=== PATIENT | female | born 1930 | race Caucasian/White ===

== ENCOUNTER 2019-03-04 09:03 | Inpatient (IN) | payer MEDICARE, OTHER ==
[~2019-03-04 09:03] MED LIST: AMLO10TA5 PO; AMLO10TAB OR; ASPI81TA26 PO; ASPI81TA45; BABY81CH; BABY81CH OR; COLA100C2; COUM1TAB; COUM1TAB18; COUMADIN; DIOV160T3 PO; DIOV320T; DIOV80TA OR; GLUC500T; HYDR-3911 PO; HYDR25TA6; HYDR25TA7 OR; KEFL500C17 PO; LIPI20TA; LIPI20TA OR; LIPI20TA PO; LISI40TA; LISI40TA OR; LOPR50TA; METF500T4; METF500T4 OR; METO-1; METO1TAB7 PO; METO50TA4; METO50TA4 OR; NEXI1CAP3 OR; NORV5TAB; OMEP-172 PO; POTA10CA2; PROT1TAB2; SENN8.6T14; SULF800T PO; TRAM50TA2; TRIC145T19; TRIC145T19 OR; TRIC145T22 PO; TRIC1TAB; VITA100066 PO; [UNRECOGNIZED DRUG - OTHER] PO; tylenol arthritis
[2019-03-04] MEDS ORDERED: POTA10CA32 PO (09:30)
[2019-03-04] MEDS ORDERED: LOSA100T8 PO (09:30)
[2019-03-04 09:55] LABS: BASO % 0.3 % (0.0-1.0); EOS % 0.4 % (0.0-3.0); HEMOGLOBIN 12.2 g/dl (12.0-15.5); LYMPH # 2.5 10^3/uL (1.5-5.0); LYMPH % 33.5 % (24.0-44.0); MEAN CORPUSCULAR VOLUME 103.1 fl (80.0-96.0); MONO # 0.7 10^3/uL (0.0-0.8); MONO % 9.9 % (0.0-5.0); NEUTROPHILS # 4.1 10^3/uL (1.5-8.5); NEUTROPHILS % 55.2 % (36.0-66.0); PLATELET COUNT, AUTOMATED 224 10^3/uL (150-450); RED BLOOD COUNT 3.59 10^6/uL (4.00-5.40); WHITE BLOOD COUNT 7.5 10^3/uL (4.0-10.0)
[2019-03-04] MEDS ORDERED: NS 1,000 ML IV ONE ×2 (10:00)
[2019-03-04 10:57] LABS: ALBUMIN 3.4 GM/DL (3.2-5.2); ALT/SGPT 23 U/L (12-78); BILIRUBIN,DIRECT 0.6 MG/DL (0.0-0.2); BILIRUBIN,TOTAL 1.1 MG/DL (0.2-1.0); BLOOD UREA NITROGEN 105 MG/DL (7-18); CALCIUM LEVEL 8.2 MG/DL (8.8-10.2); CARBON DIOXIDE LEVEL 14 MEQ/L (21-32); CHLORIDE LEVEL 108 MEQ/L (98-107); CPK CREATINE PHOSPHOKINASE 87 U/L (26-192); CREATININE FOR GFR 4.56 MG/DL (0.55-1.30); GLOMERULAR FILTRATION RATE 9.7 (>32); GLUCOSE, FASTING 153 MG/DL (70-100); MB/CK RELATIVE INDEX 3.45 (< OR =4); POTASSIUM SERUM 3.7 MEQ/L (3.5-5.1); SODIUM LEVEL 138 MEQ/L (136-145); TOTAL PROTEIN 6.5 GM/DL (6.4-8.2); TROPONIN I < 0.02 NG/ML (< 0.10)
[2019-03-04] MEDS ORDERED: ACETAMINOPHEN TAB 650MG DOSE (2X325MG) PO ONE (12:45)
[2019-03-04] MEDS ORDERED: D 1010002 PO (12:50)
--- NOTE | 2019-03-04 14:44 | REP ---
RENAL ULTRASOUND: Real-time sonographic evaluation of the kidneys performed. Right kidney measures 11.9 x 4.8 x 5.2 cm and left kidney 9.2 x 4.2 x 4.9 cm. There is no evidence of renal mass. There is moderate right hydronephrosis. There is no left hydronephrosis. Urinary bladder is not well distended and not well evaluated. IMPRESSION: Moderate right hydronephrosis appears similar to a prior CT of 12/17/2014. No left hydronephrosis. Electronically Signed by Russel Navarrete MD 03/04/2019 04:48 P
--- NOTE | 2019-03-04 15:33 | HPEPDOC ---
[facility] Medical History & Physical Date of Admission Mar 04, 2019 Date of Service: Mar 04, 2019 Attending Physician: BENNY MENG MD History and Physical CHIEF COMPLAINT: Diarrhea HISTORY OF PRESENT ILLNESS: 88 old female, past medical history of hypertension, diabetes and hyperlipidemia presents from home with diarrhea for the past 4 days. She reports feeling well up until 4 days ago, started having watery diarrhea, denies associated abdominal pain, nausea, vomiting or fevers. She also reports feeling dizzy over the past 24-48 hours. She reports poor oral intake during this time as well, continued taking all 5 of her antihypertensive medications as well. Patient denies any sick contacts, nobody else with similar symptoms at home. She also denies any myalgia or arthralgia. She was given 2 L of normal saline in the ED, reports improvement in dizziness, last episode of diarrhea was earlier today. She denies any short of breath, chest pain, nausea, vomiting or abdominal pain at this time. 10 point review of system is negative except for above PAST MEDICAL HISTORY: 1. Hypertension. 2. Diabetes mellitus. 3. Hyperlipidemia. PAST SURGICAL HISTORY: 1. Hysterectomy. SOCIAL HISTORY: Never smoker. Social alcohol use. Denies drug use FAMILY HISTORY: Positive for heart disease ALLERGIES: Please see below. HOME MEDICATIONS: Please see below. PHYSICAL EXAMINATION: VITAL SIGNS: Please see below. GENERAL: No distress HEENT: Normocephalic, atraumatic, moist mucous membranes NECK: Supple CARDIOVASCULAR EXAMINATION: S1, S2, no murmurs RESPIRATORY EXAMINATION: Clear to auscultation, no wheezing ABDOMINAL EXAMINATION: Soft, nontender, nondistended, positive bowel sounds EXTREMITIES: Range of motion intact SKIN: No rash NEUROLOGICAL EXAMINATION: Alert and oriented 3, no focal deficits PSYCHIATRIC EXAMINATION: Calm and cooperative LABORATORY DATA: See below. IMAGING: Renal ultrasound with moderate right-sided hydronephrosis MICROBIOLOGY: Please see below. ASSESSMENT: 88-year-old female with past medical history of hypertension, diabetes mellitus and hyperlipidemia presents with diarrhea, acute kidney injury and moderate right hydronephrosis. PLAN: 1. Diarrhea. Unknown etiology, possibly related to medication versus acute kidney injury versus hydronephrosis, GI panel ordered. Diarrhea seems to have resolved, will monitor, continue IV hydration. 2. Acute kidney injury. Likely prerenal and medication induced, patient on JESSIE inhibitor and hydrochlorothiazide (will hold), also has moderate right-sided hydronephrosis on imaging, CT of the abdomen and pelvis ordered, continue IV hydration. 3. Possible UTI. UA concerning for UTI, ordered ceftriaxone. 4. Hyperlipidemia. Continue atorvastatin 5. Hypertension. Continue home Norvasc and metoprolol for now, hold hydralazine, JESSIE inhibitor and hydro-chlorothiazide. DVT prophylaxis: Heparin subcutaneous GI prophylaxis: Not needed Vital Signs Vital Signs Date Time Temp Pulse Resp B/P (MAP) Pulse Ox O2 Delivery O2 Flow Rate FiO2 03/04/19 13:45 77 103/51 (68) 96 03/04/19 09:08 96.7 18 Room Air Laboratory Data Labs 24H Laboratory Tests 2 03/04/19 09:21: Bedside Glucose (Misc Panel) 138H 03/04/19 09:36: Immature Granulocyte % (Auto) 0.7, Neutrophils (%) (Auto) 55.2, Lymphocytes (%) (Auto) 33.5, Monocytes (%) (Auto) 9.9H, Eosinophils (%) (Auto) 0.4, Basophils (% ) (Auto) 0.3, Neutrophils # (Auto) 4.1, Lymphocytes # (Auto) 2.5, Monocytes # (Auto) 0.7, Eosinophils # (Auto) 0.0, Basophils # (Auto) 0.0, Nucleated Red Blood Cells % (auto) 0.0, Anion Gap 16, Glomerular Filtration Rate 9.7L, Lactic Acid Level 1.0, Calcium Level 8.2L, Total Bilirubin 1.1H, Direct Bilirubin 0.6H, Aspartate Amino Transf (AST/SGOT) 24, Alanine Aminotransferase (ALT/SGPT) 23, Alkaline Phosphatase 75, Total Creatine Kinase 87, Creatine Kinase MB 3.0, Creatine Kinase MB Relative Index 3.45, Troponin I < 0.02, Total Protein 6.5, Albumin 3.4, Albumin/Globulin Ratio 1.10, Thyroid Stimulating Hormone (TSH) 2.520 03/04/19 12:34: Urine Color ISABELA, Urine Appearance CLOUDYH, Urine pH 5.0, Urine Specific Artesian 1.014, Urine Protein 1+H, Urine Glucose (UA) NEGATIVE, Urine Ketones NEGATIVE, Urine Blood NEGATIVE, Urine Nitrite NEGATIVE, Urine Bilirubin 1+H, Urine Urobilinogen 0.2, Urine Leukocyte Esterase 1+H, Urine WBC (Auto) 15H, Urine RBC (Auto) 3, Urine Hyaline Casts (Auto) 42, Urine Bacteria (Auto) 3+H, Urine Squamous Epithelial Cells 1, Urine Transitional Epithelial Cells <1, Urine Amorphous Sediment SMALLH, Urine Mucus (Auto) SMALL, Urine Sperm (Auto) CBC/BMP Laboratory Tests 03/04/19 09:36 Microbiology Microbiology 03/04/19 Urine Culture, Received Pending 03/04/19 Blood Culture, Received Pending Home Medications Scheduled Amlodipine Besylate (Amlodipine Besylate) 10 Mg Tab, 10 MG PO DAILY Aspirin (Aspirin EC) 81 Mg Tab, 81 MG PO QHS Atorvastatin Calcium (Lipitor) 20 Mg Tab, 20 MG PO DAILY Cholecalciferol (Vitamin D3) (Vitamin D3) 1,000 Unit Capsule, 1,000 UNIT PO DAILY Fenofibrate Nanocrystallized (Tricor) 145 Mg Tab, 145 MG PO DAILY Hydralazine HCl (Hydralazine HCl) 50 Mg Tab, 50 MG PO TID Losartan/Hydrochlorothiazide (Losartan-Hctz 100-12.5 mg Tab) 1 Each Tablet, 1 TAB PO DAILY Metoprolol Succinate (Metoprolol Succinate) 50 Mg Tab, 50 MG PO DAILY Omeprazole (Omeprazole) 20 Mg Cap, 20 MG PO DAILY Potassium Chloride (Potassium Chloride) 10 Meq Capsule.er, 10 MEQ PO DAILY Allergies Coded Allergies: Sulfa (Sulfonamide Antibiotics) (Verified Adverse Reaction, Severe, Renal failure, 03/04/19) A-FIB/CHADSVASC A-FIB History Current/History of A-Fib/PAF?: No BENNY MENG MD Mar 04, 2019 15:33
--- NOTE | 2019-03-04 15:45 | REP ---
Clinical: Diarrhea. Right-sided hydronephrosis Technique: Axial noncontrast images from the lung bases to the pubic symphysis with coronal and sagittal re-formations. Comparison: 12/17/2014. Findings: Lung bases demonstrate chronic fibroatelectatic changes. Liver, spleen, pancreas, and bilateral adrenal glands are essentially normal noncontrast evaluation. 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 The enteric system is without obvious acute obstruction or definite inflammatory process. Normal terminal ileum and appendix identified in the right lower quadrant. Sigmoid diverticula noted without definite acute diverticulitis. 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 Osseous structures demonstrate degenerative changes without focal abnormality. Impression: 1. Chronic stable changes. 2. No obvious acute abdominopelvic pathology appreciated. 3. 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 4. No ascites. No free air. No obvious focal inflammatory stranding or adenopathy. 5. Diverticulosis without acute diverticulitis. Electronically Signed by Gerry Camacho MD 03/04/2019 03:37 P
[2019-03-04] MEDS: **hydrALAZINE** 50 MG TAB PO SCH ×2 (16:00→20:20)
[2019-03-04 16:33] LABS: CALCIUM LEVEL 7.3 MG/DL (8.8-10.2); CREATININE FOR GFR 3.34 MG/DL (0.55-1.30); GLOMERULAR FILTRATION RATE 13.9 (>32); POTASSIUM SERUM 3.6 MEQ/L (3.5-5.1)
[2019-03-04 16:55] VITALS: BP 111/47
[2019-03-04] MEDS: NS 1,000 ML IV SCH (17:11)
[2019-03-04] MEDS: cefTRIAXone SOD 1 GM in D5W MINI-BAG PLUS 50 ML IV SCH (17:11)
--- NOTE | 2019-03-04 18:05 | ECGEPIP ---
[facility] - ED Test Date: 2019-03-04 Pat Name: JOHANNE RASHEED Department: Room: - Gender: Female Neuroscience Specialist: ARTEMIO : [id number] Requested By: MARCY Gusman Order Number: [id number] Reading MD: Chip Jones Measurements Intervals [place] Rate: 83 P: 27 CT: 197 QRS: 13 QRSD: 89 T: -17 QT: 371 QTc: 436 Interpretive Statements SINUS RHYTHM WITH OCCASIONAL SUPRAVENTRICULAR PREMATURE COMPLEXES NSTTW ABNORMALITIES, MORE PRONOUNCED COMPARED TO 12/17/14 Electronically Signed on 03-04-2019 18:05:42 EST by Chip Jones
[2019-03-04] MEDS: ASPIRIN 81 MG ENTERIC TAB PO SCH (20:07)
[2019-03-04] MEDS: HEPARIN SOD (PORCINE) 5000 UNITS/ML VIAL SC SCH (20:08)
[2019-03-04 22:00] VITALS: BP 106/50
[2019-03-05] MEDS ORDERED: AZITHROMYCIN 250 MG TAB PO ONE (03:15)
[2019-03-05] MEDS: NS 1,000 ML IV SCH (03:29)
[2019-03-05 06:00] VITALS: BP 113/58
[2019-03-05 06:32] LABS: HEMATOCRIT 30.9 % (36.0-47.0); MEAN CORPUSCULAR HEMOGLOBIN 33.3 pg (27.0-33.0); MEAN CORPUSCULAR HGB CONC 32.4 g/dl (32.0-36.5); PLATELET COUNT, AUTOMATED 165 10^3/uL (150-450); WHITE BLOOD COUNT 6.4 10^3/uL (4.0-10.0)
[2019-03-05 06:55] LABS: ALBUMIN 2.7 GM/DL (3.2-5.2); BILIRUBIN,TOTAL 0.5 MG/DL (0.2-1.0); CALCIUM LEVEL 7.3 MG/DL (8.8-10.2); CREATININE FOR GFR 2.19 MG/DL (0.55-1.30); GLOMERULAR FILTRATION RATE 22.6 (>32); MAGNESIUM LEVEL 0.6 MG/DL (1.8-2.4); PHOSPHORUS LEVEL 3.3 MG/DL (2.5-4.9); POTASSIUM SERUM 3.3 MEQ/L (3.5-5.1); TOTAL PROTEIN 5.6 GM/DL (6.4-8.2)
[2019-03-05] MEDS: MAG SULF 1GM/100ML (MAG RUN) 1 GM in IV 1 EA IV SCH ×8 (07:31→22:29)
[2019-03-05] MEDS: FENOFIBRATE 145 MG TAB (TRICOR) PO SCH (08:16)
[2019-03-05] MEDS: HEPARIN SOD (PORCINE) 5000 UNITS/ML VIAL SC SCH ×2 (08:16→20:47)
[2019-03-05] MEDS: METOPROLOL SUCC (TopROL XL) 50MG **XL** TAB PO SCH (08:17)
[2019-03-05] MEDS: amLODIPine 10 MG TAB PO SCH (08:17)
[2019-03-05] MEDS: **hydrALAZINE** 50 MG TAB PO SCH ×3 (08:17→20:49)
[2019-03-05] MEDS: OMEPRAZOLE 20 MG CAP PO SCH (08:17)
[2019-03-05] MEDS: ATORVASTATIN 20 MG TAB PO SCH (08:17)
[2019-03-05] MEDS ORDERED: SODIUM BICARBONATE 150 MEQ in STERILE WATER LITER BAG 1,000 ML IV SCH (10:00)
[2019-03-05] MEDS: POTASSIUM CHLORIDE 10 MEQ SR TABLET PO SCH ×2 (10:04→12:15)
[2019-03-05 14:00] VITALS: BP 108/55
[2019-03-05] MEDS: cefTRIAXone SOD 1 GM in D5W MINI-BAG PLUS 50 ML IV SCH (16:02)
--- NOTE | 2019-03-05 18:30 | IPNPDOC ---
Date Seen The patient was seen on 03/05/19. Progress Note HISTORY OF PRESENT ILLNESS: 88 old female, past medical history of hypertension, diabetes and hyperlipidemia presents from home with diarrhea for the past 4 days. She reports feeling well up until 4 days ago, started having watery diarrhea, denies associated abdominal pain, nausea, vomiting or fevers. She also reports feeling dizzy over the past 24-48 hours. She reports poor oral intake during this time as well, continued taking all 5 of her antihypertensive medications as well. Patient denies any sick contacts, nobody else with similar symptoms at home. She also denies any myalgia or arthralgia. She was given 2 L of normal saline in the ED, reports improvement in dizziness, last episode of diarrhea was earlier today. She denies any short of breath, chest pain, nausea, vomiting or abdominal pain at this time. 03/05/2019 Stool panel positive for Campylobacter, patient is to have diarrhea, no other complaints. 10 point review of system is negative except for above PHYSICAL EXAMINATION: VITAL SIGNS: Please see below. GENERAL: No distress HEENT: Normocephalic, atraumatic, moist mucous membranes NECK: Supple CARDIOVASCULAR EXAMINATION: S1, S2, no murmurs RESPIRATORY EXAMINATION: Clear to auscultation, no wheezing ABDOMINAL EXAMINATION: Soft, nontender, nondistended, positive bowel sounds EXTREMITIES: Range of motion intact SKIN: No rash NEUROLOGICAL EXAMINATION: Alert and oriented 3, no focal deficits PSYCHIATRIC EXAMINATION: Calm and cooperative LABORATORY DATA: See below. IMAGING: Renal ultrasound with moderate right-sided hydronephrosis MICROBIOLOGY: Please see below. ASSESSMENT: 88-year-old female with past medical history of hypertension, diabetes mellitus and hyperlipidemia presents with diarrhea, acute kidney injury and moderate right hydronephrosis. PLAN: 1. Watery Diarrhea. Likely due to Campylobacter, treated with azithromycin 1 g 1. Continue IV hydration for acute kidney injury. 2. Acute kidney injury. Likely prerenal and medication induced, patient on JESSIE inhibitor and hydrochlorothiazide (will hold), also has moderate right-sided hydronephrosis on imaging, CT of the abdomen and pelvis confirming chronic stable right sided hydronephrosis, continue IV hydration. 3. Possible UTI. UA concerning for UTI, ordered ceftriaxone. 4. Hyperlipidemia. Continue atorvastatin 5. Hypertension. Continue home Norvasc and metoprolol for now, hold hydralazine, JESSIE inhibitor and hydro-chlorothiazide. 6. Hypomagnesemia. Severe, treated with 6 g of IV mag sulfate so far, will administer another 2 g overnight, will monitor and provide further repletion as needed. DVT prophylaxis: Heparin subcutaneous GI prophylaxis: Not needed VS, I&O, 24H, Fishbone Vital Signs/I&O Vital Signs Date Time Temp Pulse Resp B/P (MAP) Pulse Ox O2 Delivery O2 Flow Rate FiO2 03/05/19 14:00 97.9 69 18 108/55 (72) 95 Room Air I&O- Last 24 Hours up to 6 AM 03/05/19 06:00 Intake Total 3590 ml Output Total 400 ml Balance 3190 ml Laboratory Data 24H LABS Laboratory Tests 2 03/05/19 05:18: Nucleated Red Blood Cells % (auto) 0.0, Anion Gap 9, Glomerular Filtration Rate 22.6L, Calcium Level 7.3L, Phosphorus Level 3.3, Magnesium Level 0.6*L, Total Bilirubin 0.5#, Aspartate Amino Transf (AST/SGOT) 17, Alanine Aminotransferase (ALT/SGPT) 19, Alkaline Phosphatase 60, Total Protein 5.6L, Albumin 2.7#L, Albumin/Globulin Ratio 0.93L CBC/BMP Laboratory Tests 03/05/19 05:18 Microbiology Microbiology 03/05/19 Gastrointestinal Tract Panel (PCR) - Final, Complete Campylobacter 03/04/19 Urine Culture - Final, Complete 03/04/19 Blood Culture - Preliminary, Resulted No growth after 24 hours . All specim... BENNY MENG MD Mar 05, 2019 18:30
--- NOTE | 2019-03-05 19:58 | ECHO ---
DATE OF PROCEDURE: 03/05/2019 Date of : 1930 Age: 88 REFERRING PHYSICIAN: Dr. De Leon PATIENT LOCATION: Room 4202 REASON FOR ECHOCARDIOGRAM: Shortness of breath. 2D MEASUREMENTS: IVS: 0.9 cm LV: 3.3 cm LVPW: 0.9 cm LA: 2.5 cm Aorta: 2.8 cm IVC: 1.9 cm DOPPLER MEASUREMENTS: Peak velocity across the aortic valve: 1.5 m/s Peak velocity across the LVOT: 0.95 m/s Mitral E: 0.72, Mitral A: 0.78 with a ratio of 0.9 Maximum tricuspid valve velocity: 2.7 m/s 2D COMMENTS: 1. Normal left ventricular size, wall thickness, and normal global left ventricular systolic function. The estimated left ventricular systolic ejection fraction is 60-65%. 2. Normal left atrium. Normal right atrium and right ventricle. 3. The atrial septum appeared to be normal without evidence of defect or shunt. 4. Normal aortic root. 5. Trace to small pericardial effusion noted, no evidence of cardiac tamponade. 6. Right pleural effusion also noted. 7. Minimally calcified aortic valve with normal leaflet excursion. No mitral valve, tricuspid valve. The pulmonic valve and proximal pulmonary artery branches were not well visualized. 8. The inferior vena cava was normal in size, central venous pressure is most likely normal. DOPPLER: It detects mild mitral regurgitation, mild to moderate tricuspid regurgitation. The calculated pulmonary artery systolic pressure varies between 30-40 mmHg. Abnormal relaxation pattern was noted across the mitral valve leaflets as well as the mitral valve annulus consistent with features of grade 1 left ventricular diastolic dysfunction. IMPRESSION 1. Normal global left ventricular systolic function. There is some features of grade 1 left ventricular diastolic dysfunction manifested by abnormal relaxation. 2. Aortic valve sclerosis with trivial aortic stenosis but no aortic regurgitation. 3. Mild mitral regurgitation. 4. Mild to moderate tricuspid regurgitation with mild pulmonary hypertension. 5. Trace to small pericardial effusion noted, no evidence of cardiac tamponade. A right pleural effusion also was noted.
[2019-03-05] MEDS: ASPIRIN 81 MG ENTERIC TAB PO SCH (20:47)
[2019-03-05 22:00] VITALS: BP 115/57
[2019-03-06 05:50] LABS: HEMATOCRIT 30.8 % (36.0-47.0); HEMOGLOBIN 10.2 g/dl (12.0-15.5); MEAN CORPUSCULAR HEMOGLOBIN 33.2 pg (27.0-33.0); MEAN CORPUSCULAR HGB CONC 33.1 g/dl (32.0-36.5); MEAN CORPUSCULAR VOLUME 100.3 fl (80.0-96.0); PLATELET COUNT, AUTOMATED 175 10^3/uL (150-450); RED BLOOD COUNT 3.07 10^6/uL (4.00-5.40); WHITE BLOOD COUNT 6.9 10^3/uL (4.0-10.0)
[2019-03-06 06:00] VITALS: BP 119/55
[2019-03-06 06:16] LABS: CREATININE FOR GFR 1.27 MG/DL (0.55-1.30); GLOMERULAR FILTRATION RATE 42.5 (>32); MAGNESIUM LEVEL 2.8 MG/DL (1.8-2.4); PHOSPHORUS LEVEL 1.4 MG/DL (2.5-4.9); POTASSIUM SERUM 4.2 MEQ/L (3.5-5.1)
[2019-03-06] MEDS: FENOFIBRATE 145 MG TAB (TRICOR) PO SCH (08:53)
[2019-03-06] MEDS: OMEPRAZOLE 20 MG CAP PO SCH (08:53)
[2019-03-06] MEDS: ATORVASTATIN 20 MG TAB PO SCH (08:55)
[2019-03-06] MEDS: METOPROLOL SUCC (TopROL XL) 50MG **XL** TAB PO SCH (08:55)
[2019-03-06] MEDS: **hydrALAZINE** 50 MG TAB PO SCH ×3 (08:55→22:08)
[2019-03-06] MEDS: amLODIPine 10 MG TAB PO SCH (08:55)
[2019-03-06] MEDS: HEPARIN SOD (PORCINE) 5000 UNITS/ML VIAL SC SCH ×2 (08:56→22:09)
[2019-03-06] MEDS ORDERED: FLUBLOK(EGG FREE)(QUAD)INFLUENZA VACC 0.5ML SYRINGE (90682)18YRS&OLDER IM ONE (09:00)
[2019-03-06] MEDS ORDERED: POTASSIUM PHOSPHATE INJ 30 MMOL in D5W 500 ML IV ONE (10:00)
[2019-03-06] MEDS ORDERED: FLUBLOK(EGG FREE)(QUAD)INFLUENZA VACC 0.5ML SYRINGE (90682)18YRS&OLDER IM PRN (10:45)
[2019-03-06] MEDS: cefTRIAXone SOD 1 GM in D5W MINI-BAG PLUS 50 ML IV SCH (16:44)
--- NOTE | 2019-03-06 17:22 | IPNPDOC ---
Date Seen The patient was seen on 03/06/19. Progress Note HISTORY OF PRESENT ILLNESS: 88 old female, past medical history of hypertension, diabetes and hyperlipidemia presents from home with diarrhea for the past 4 days. She reports feeling well up until 4 days ago, started having watery diarrhea, denies associated abdominal pain, nausea, vomiting or fevers. She also reports feeling dizzy over the past 24-48 hours. She reports poor oral intake during this time as well, continued taking all 5 of her antihypertensive medications as well. Patient denies any sick contacts, nobody else with similar symptoms at home. She also denies any myalgia or arthralgia. She was given 2 L of normal saline in the ED, reports improvement in dizziness, last episode of diarrhea was earlier today. She denies any short of breath, chest pain, nausea, vomiting or abdominal pain at this time. 03/05/2019 Stool panel positive for Campylobacter, patient is to have diarrhea, no other complaints. 03/06/2019 Patient comfortable in bed, without any complaint at this time, tolerating diet, has good urine output. 10 point review of system is negative except for above PHYSICAL EXAMINATION: VITAL SIGNS: Please see below. GENERAL: No distress HEENT: Normocephalic, atraumatic, moist mucous membranes NECK: Supple CARDIOVASCULAR EXAMINATION: S1, S2, no murmurs RESPIRATORY EXAMINATION: Clear to auscultation, no wheezing ABDOMINAL EXAMINATION: Soft, nontender, nondistended, positive bowel sounds EXTREMITIES: Range of motion intact SKIN: No rash NEUROLOGICAL EXAMINATION: Alert and oriented 3, no focal deficits PSYCHIATRIC EXAMINATION: Calm and cooperative LABORATORY DATA: See below. IMAGING: Renal ultrasound with moderate right-sided hydronephrosis MICROBIOLOGY: Please see below. ASSESSMENT: 88-year-old female with past medical history of hypertension, todd betes mellitus and hyperlipidemia presents with diarrhea, acute kidney injury and moderate right hydronephrosis. PLAN: 1. Watery Diarrhea. Likely due to Campylobacter, treated with azithromycin 1 g 1. Tolerating diet, IV fluids discontinued. 2. Acute kidney injury. Likely prerenal and medication induced, resolved with IV hydration and holding JESSIE inhibitor/HCTZ, will restart JESSIE inhibitor/HCTZ starting tomorrow, CT of the abdomen and pelvis showing chronic stable right sided hydronephrosis, discontinue IV fluids. 3. Possible UTI. UA concerning for UTI, continue ceftriaxone. 4. Hyperlipidemia. Continue atorvastatin 5. Hypertension. Continue home Norvasc, metoprolol and hydralazine, restart losartan and hydrochlorothiazide tomorrow. DVT prophylaxis: Heparin subcutaneous GI prophylaxis: Not needed VS, I&O, 24H, Fishbone Vital Signs/I&O Vital Signs Date Time Temp Pulse Resp B/P (MAP) Pulse Ox O2 Delivery O2 Flow Rate FiO2 03/06/19 16:46 123/60 03/06/19 08:55 81 03/06/19 06:00 98.0 15 97 Room Air I&O- Last 24 Hours up to 6 AM 03/06/19 06:00 Intake Total 1900 ml Output Total 1500 ml Balance 400 ml Laboratory Data 24H LABS Laboratory Tests 2 03/06/19 05:29: Nucleated Red Blood Cells % (auto) 0.0, Anion Gap 6L, Glomerular Filtration Rate 42.5, Calcium Level 8.0L, Phosphorus Level 1.4#L, Magnesium Level 2.8H CBC/BMP Laboratory Tests 03/06/19 05:29 Microbiology Microbiology 03/05/19 Gastrointestinal Tract Panel (PCR) - Final, Complete Campylobacter 03/04/19 Urine Culture - Final, Complete 03/04/19 Blood Culture - Preliminary, Resulted No Growth after 48 hours. All Specime... BENNY MENG MD Mar 06, 2019 17:22
[2019-03-06 18:00] VITALS: BP 122/58
[2019-03-06] MEDS: hydroCHLOROthiazide 12.5 MG CAPSULE PO SCH (18:51)
[2019-03-06] MEDS: LOSARTAN 50 MG TAB PO SCH (18:51)
[2019-03-06 22:00] VITALS: BP 124/70
[2019-03-06] MEDS: ASPIRIN 81 MG ENTERIC TAB PO SCH (22:08)
[2019-03-07 06:00] VITALS: BP 129/70
[2019-03-07 07:12] LABS: HEMATOCRIT 31.5 % (36.0-47.0); HEMOGLOBIN 10.3 g/dl (12.0-15.5); MEAN CORPUSCULAR HEMOGLOBIN 33.3 pg (27.0-33.0); MEAN CORPUSCULAR HGB CONC 32.7 g/dl (32.0-36.5); MEAN CORPUSCULAR VOLUME 101.9 fl (80.0-96.0); PLATELET COUNT, AUTOMATED 191 10^3/uL (150-450); RED BLOOD COUNT 3.09 10^6/uL (4.00-5.40); WHITE BLOOD COUNT 7.8 10^3/uL (4.0-10.0)
[2019-03-07 07:17] LABS: CALCIUM LEVEL 8.3 MG/DL (8.8-10.2); CREATININE FOR GFR 1.24 MG/DL (0.55-1.30); GLOMERULAR FILTRATION RATE 43.7 (>32); MAGNESIUM LEVEL 1.8 MG/DL (1.8-2.4); PHOSPHORUS LEVEL 2.5 MG/DL (2.5-4.9); POTASSIUM SERUM 4.8 MEQ/L (3.5-5.1)
[2019-03-07] MEDS ORDERED: MAG SULF 1GM/100ML (MAG RUN) 1 GM in IV 1 EA IV ONE (09:00)
[2019-03-07] MEDS: hydroCHLOROthiazide 12.5 MG CAPSULE PO SCH (09:31)
[2019-03-07] MEDS: HEPARIN SOD (PORCINE) 5000 UNITS/ML VIAL SC SCH ×2 (09:31→20:46)
[2019-03-07] MEDS: OMEPRAZOLE 20 MG CAP PO SCH (09:31)
[2019-03-07] MEDS: FENOFIBRATE 145 MG TAB (TRICOR) PO SCH (09:31)
[2019-03-07] MEDS: **hydrALAZINE** 50 MG TAB PO SCH ×3 (09:33→20:46)
[2019-03-07] MEDS: METOPROLOL SUCC (TopROL XL) 50MG **XL** TAB PO SCH (09:34)
[2019-03-07] MEDS: amLODIPine 10 MG TAB PO SCH (09:34)
[2019-03-07] MEDS: ATORVASTATIN 20 MG TAB PO SCH (09:34)
[2019-03-07] MEDS: LOSARTAN 50 MG TAB PO SCH (09:35)
[2019-03-07] MEDS: K-PHOS NEUTRAL 250MG TABLET (SOD.PHOSPHATE/POT.PHOSPHATE) PO SCH ×2 (10:43→14:01)
[2019-03-07 14:00] VITALS: BP 133/66
[2019-03-07] MEDS: cefTRIAXone SOD 1 GM in D5W MINI-BAG PLUS 50 ML IV SCH (16:31)
--- NOTE | 2019-03-07 17:17 | IPNPDOC ---
Date Seen The patient was seen on 03/07/19. Progress Note HISTORY OF PRESENT ILLNESS: 88 old female, past medical history of hypertension, diabetes and hyperlipidemia presents from home with diarrhea for the past 4 days. She reports feeling well up until 4 days ago, started having watery diarrhea, denies associated abdominal pain, nausea, vomiting or fevers. She also reports feeling dizzy over the past 24-48 hours. She reports poor oral intake during this time as well, continued taking all 5 of her antihypertensive medications as well. Patient denies any sick contacts, nobody else with similar symptoms at home. She also denies any myalgia or arthralgia. She was given 2 L of normal saline in the ED, reports improvement in dizziness, last episode of diarrhea was earlier today. She denies any short of breath, chest pain, nausea, vomiting or abdominal pain at this time. 03/05/2019 Stool panel positive for Campylobacter, patient is to have diarrhea, no other complaints. 03/06/2019 Patient comfortable in bed, without any complaint at this time, tolerating diet, has good urine output. 03/07/2019 Patient comfortable, renal function resolved, cleared by physical therapy for discharge home with home services. 10 point review of system is negative except for above PHYSICAL EXAMINATION: VITAL SIGNS: Please see below. GENERAL: No distress HEENT: Normocephalic, atraumatic, moist mucous membranes NECK: Supple CARDIOVASCULAR EXAMINATION: S1, S2, no murmurs RESPIRATORY EXAMINATION: Clear to auscultation, no wheezing ABDOMINAL EXAMINATION: Soft, nontender, nondistended, positive bowel sounds EXTREMITIES: Range of motion intact SKIN: No rash NEUROLOGICAL EXAMINATION: Alert and oriented 3, no focal deficits PSYCHIATRIC EXAMINATION: Calm and cooperative LABORATORY DATA: See below. IMAGING: Renal ultrasound with moderate right-sided hydronephrosis MICROBIOLOGY: Please see below. ASSESSMENT: 88-year-old female with past medical history of hypertension, diabetes mellitus and hyperlipidemia presents with diarrhea, acute kidney injury and moderate right hydronephrosis. PLAN: 1. Watery Diarrhea. Likely due to Campylobacter, treated with azithromycin 1 g 1. Tolerating diet, diarrhea resolved, oral intake adequate. 2. Acute kidney injury. Likely prerenal and medication induced, resolved with IV hydration and holding JESSIE inhibitor/HCTZ, restarted JESSIE inhibitor/HCTZ, CT of the abdomen and pelvis showing chronic stable right sided hydronephrosis, no longer on IV fluids, by mouth intake adequate, renal function acceptable. 3. Possible UTI. UA concerning for UTI, continue ceftriaxone. 4. Hyperlipidemia. Continue atorvastatin 5. Hypertension. Continue home Norvasc, metoprolol, hydralazine, losartan and hydrochlo rothiazide. DVT prophylaxis: Heparin subcutaneous GI prophylaxis: Not needed VS, I&O, 24H, Fishbone Vital Signs/I&O Vital Signs Date Time Temp Pulse Resp B/P (MAP) Pulse Ox O2 Delivery O2 Flow Rate FiO2 03/07/19 16:33 132/65 03/07/19 14:00 97.7 70 14 95 Room Air I&O- Last 24 Hours up to 6 AM 03/07/19 06:00 Intake Total 1560 ml Output Total 1450 ml Balance 110 ml Laboratory Data 24H LABS Laboratory Tests 2 03/07/19 06:26: Nucleated Red Blood Cells % (auto) 0.0, Anion Gap 6L, Glomerular Filtration Rate 43.7, Calcium Level 8.3L, Phosphorus Level 2.5#, Magnesium Level 1.8 CBC/BMP Laboratory Tests 03/07/19 06:26 Microbiology Microbiology 03/05/19 Gastrointestinal Tract Panel (PCR) - Final, Complete Campylobacter 03/04/19 Urine Culture - Final, Complete 03/04/19 Blood Culture - Preliminary, Resulted No Growth after 72 hours. All specime... BENNY MENG MD Mar 07, 2019 17:17
[2019-03-07] MEDS: ASPIRIN 81 MG ENTERIC TAB PO SCH (20:46)
[2019-03-07 22:00] VITALS: BP 139/71
[2019-03-08 05:39] LABS: HEMATOCRIT 29.1 % (36.0-47.0); HEMOGLOBIN 9.8 g/dl (12.0-15.5); MEAN CORPUSCULAR HEMOGLOBIN 34.4 pg (27.0-33.0); MEAN CORPUSCULAR HGB CONC 33.7 g/dl (32.0-36.5); MEAN CORPUSCULAR VOLUME 102.1 fl (80.0-96.0); PLATELET COUNT, AUTOMATED 182 10^3/uL (150-450); RED BLOOD COUNT 2.85 10^6/uL (4.00-5.40); WHITE BLOOD COUNT 8.3 10^3/uL (4.0-10.0)
[2019-03-08 06:00] VITALS: BP 121/78
[2019-03-08 06:08] LABS: CALCIUM LEVEL 8.7 MG/DL (8.8-10.2); CREATININE FOR GFR 1.12 MG/DL (0.55-1.30); GLOMERULAR FILTRATION RATE 49.1 (>32); MAGNESIUM LEVEL 1.7 MG/DL (1.8-2.4); PHOSPHORUS LEVEL 3.2 MG/DL (2.5-4.9)
[2019-03-08] MEDS: FENOFIBRATE 145 MG TAB (TRICOR) PO SCH (08:10)
[2019-03-08] MEDS: ATORVASTATIN 20 MG TAB PO SCH (08:10)
[2019-03-08] MEDS: hydroCHLOROthiazide 12.5 MG CAPSULE PO SCH (08:10)
[2019-03-08] MEDS: OMEPRAZOLE 20 MG CAP PO SCH (08:11)
[2019-03-08] MEDS: METOPROLOL SUCC (TopROL XL) 50MG **XL** TAB PO SCH (08:11)
[2019-03-08] MEDS: **hydrALAZINE** 50 MG TAB PO SCH (08:11)
[2019-03-08] MEDS: LOSARTAN 50 MG TAB PO SCH (08:11)
[2019-03-08 08:12] VITALS: BP 141/67
[2019-03-08] MEDS: HEPARIN SOD (PORCINE) 5000 UNITS/ML VIAL SC SCH (08:12)
[2019-03-08] MEDS: amLODIPine 10 MG TAB PO SCH (08:12)
[2019-03-08] MEDS: MAG SULF 1GM/100ML (MAG RUN) 1 GM in IV 1 EA IV SCH ×2 (09:42→10:06)
[2019-03-08 14:00] VITALS: BP 140/66
--- NOTE | 2019-03-08 17:00 | DS.PDOC ---
Discharge Summary General Date of Admission Mar 04, 2019 at 15:05 Date of Discharge 03/08/2019 Attending Physician: BENNY MENG MD Discharge Summary PROCEDURES PERFORMED DURING STAY: None. ADMITTING DIAGNOSES: 1. Diarrhea, acute kidney injury. DISCHARGE DIAGNOSES: 1. Diarrhea, acute kidney injury. COMPLICATIONS/CHIEF COMPLAINT: Yuan Diabetes Diarrhea Hld Htn. HISTORY OF PRESENT ILLNESS: 88-year-old female with past medical history of diabetes mellitus, hypertension and hyperlipidemia was admitted for diarrhea and acute kidney injury. Her stool panel was positive for Campylobacter, which was likely the cause of her watery diarrhea, she was treated with azithromycin 1 g 1. Acute kidney injury was treated with IV hydration with subsequent resolution, creatinine is now back to baseline. Patient currently is symptomatic, evaluated by physical therapy who recommend home with services. Patient is clinically and hemodynamically stable for discharge and outpatient follow-up. HOSPITAL COURSE: As above. DISCHARGE MEDICATIONS: Please see below. ALLERGIES: Please see below. PHYSICAL EXAMINATION: VITAL SIGNS: Please see below. GENERAL: No distress HEENT: Normocephalic, atraumatic, moist mucous membranes NECK: Supple CARDIOVASCULAR EXAMINATION: S1, S2, no murmurs RESPIRATORY EXAMINATION: Clear to auscultation, no wheezing ABDOMINAL EXAMINATION: Soft, nontender, nondistended, positive bowel sounds EXTREMITIES: Range of motion intact SKIN: No rash NEUROLOGICAL EXAMINATION: Alert and oriented 3, no focal deficits PSYCHIATRIC EXAMINATION: Calm and cooperative LABORATORY DATA: Please see below. PROGNOSIS: Fair ACTIVITY: As tolerated. DIET: Cardiac with consistent carbs DISCHARGE PLAN: Follow with PCP in 1-2 weeks DISPOSITION: Home with services. DISCHARGE INSTRUCTIONS: 1. As above. DISCHARGE CONDITION: Stable. TIME SPENT ON DISCHARGE: Greater than 33 minutes. Vital Signs/I&Os Vital Signs Date Time Temp Pulse Resp B/P (MAP) Pulse Ox O2 Delivery O2 Flow Rate FiO2 03/08/19 14:00 97.5 74 18 140/66 (90) 98 03/07/19 22:00 Room Air I&O- Last 24 Hours up to 6 AM 03/08/19 06:00 Intake Total 1880 ml Output Total 1300 ml Balance 580 ml Laboratory Data Labs 24H Laboratory Tests 2 03/08/19 05:17: Nucleated Red Blood Cells % (auto) 0.0, Anion Gap 4L, Glomerular Filtration Rate 49.1, Calcium Level 8.7L, Phosphorus Level 3.2#, Magnesium Level 1.7L CBC/BMP Laboratory Tests 03/08/19 05:17 Microbiology Microbiology 03/05/19 Gastrointestinal Tract Panel (PCR) - Final, Complete Campylobacter 03/04/19 Urine Culture - Final, Complete 03/04/19 Blood Culture - Preliminary, Resulted No Growth after 72 hours. All specime... Discharge Medications Scheduled Amlodipine Besylate (Amlodipine Besylate) 10 Mg Tab, 10 MG PO DAILY, (Reported) Aspirin (Aspirin EC) 81 Mg Tab, 81 MG PO QHS, (Reported) Atorvastatin Calcium (Lipitor) 20 Mg Tab, 20 MG PO DAILY, (Reported) Cholecalciferol (Vitamin D3) (Vitamin D3) 1,000 Unit Capsule, 1,000 UNIT PO DAILY, (Reported) Fenofibrate Nanocrystallized (Tricor) 145 Mg Tab, 145 MG PO DAILY, (Reported) Hydralazine HCl (Hydralazine HCl) 50 Mg Tab, 50 MG PO TID, (Reported) Losartan/Hydrochlorothiazide (Losartan-Hctz 100-12.5 mg Tab) 1 Each Tablet, 1 TAB PO DAILY, (Reported) Metoprolol Succinate (Metoprolol Succinate) 50 Mg Tab, 50 MG PO DAILY, (Reported) Omeprazole (Omeprazole) 20 Mg Cap, 20 MG PO DAILY, (Reported) Potassium Chloride (Potassium Chloride) 10 Meq Capsule.er, 10 MEQ PO DAILY, (Reported) Allergies Coded Allergies: Sulfa (Sulfonamide Antibiotics) (Verified Adverse Reaction, Severe, Renal failure, 03/04/19) BENNY MENG MD Mar 08, 2019 17:00
== END 2019-03-08 15:23 | disposition home health service (06) | DRG 372 ==
LOC: M ED 09:03 → EDBD 09:03 → M ED INP 15:05 → M MSPAV 16:50
PROVIDERS: ADMIT Internal Medicine; ATTEND Internal Medicine
DX: A04.5 Campylobacter enteritis (principal); N17.9 Acute kidney failure, unspecified; E78.5 Hyperlipidemia, unspecified; I10 Essential (primary) hypertension; E11.9 Type 2 diabetes mellitus without complications; E83.42 Hypomagnesemia